=== PATIENT | male | born 1950 | race Caucasian/White ===

== ENCOUNTER 2019-01-27 09:43 | Emergency (ER) | payer OTHER, MEDICARE ==
[~2019-01-27] VITALS: Ht 182.9 cm; Wt 91.0 kg
[2019-01-27 10:31] LABS: URINE BILIRUBIN - DIPSTICK NEGATIVE (NEGATIVE); URINE BLOOD DIPSTICK TRACE-INTACT (NEGATIVE); URINE COLOR YELLOW; URINE GLUCOSE - DIPSTICK NEGATIVE (NEGATIVE); URINE KETONE NEGATIVE (NEGATIVE); URINE LEUK ESTERASE NEGATIVE (NEGATIVE); URINE NITRITE - DIPSTICK NEGATIVE (Negative); URINE PROTEIN - DIPSTICK NEGATIVE (NEG-TRACE); URINE UROBILINOGEN - DIPSTICK 0.2 E.U./dL (0.2)
[2019-01-27 11:11] LABS: IMMATURE GRANULOCYTES 0.5 % (0.0-5.0); MEAN CELL VOLUME 97.6 fL CALC (80.0-100.0); MEAN CORPUSCULAR HGB 32.5 pG CALC (26.0-32.0); MEAN CORPUSCULAR HGB CONC 33.3 g/L CALC (32.0-36.0); NEUT# 4.66 thou/uL (1.82-7.42); RED BLOOD COUNT 4.18 mill/uL (4.70-6.10)
[2019-01-27 11:26] LABS: HEMATOCRIT 40.8 % (39.0-50.0); HEMOGLOBIN 13.6 g/dl (14.0-18.0)
[2019-01-27 11:36] LABS: ALKALINE PHOSPHATASE 55 u/l (38-126); ANION GAP 12 (6-22 (CALC)); BILIRUBIN, TOTAL 0.6 mg/dL (0.0-1.4); BUN 11 mg/dL (8-23); BUN/CREATININE RATIO 11 (12-20 (CALC)); CARBON DIOXIDE 24 mmol/l (22-30); CHLORIDE 101 mmol/l (95-108); GFR > 60 ML/MIN (>=60 (CALC)); GFR FOR AFR.AMER. > 60 ML/MIN (>=60 (CALC)); POTASSIUM 3.8 mmol/l (3.5-5.1); SGOT/AST 34 u/l (19-48); SODIUM 134 mmol/l (137-146); TOTAL PROTEIN 7.4 g/dL (6.3-8.2)
[2019-01-27 12:59] VITALS: BP 134/70
== END 2019-01-27 12:59 | disposition home or self-care (01) | DRG 696 ==
LOC: ED 09:43
PROVIDERS: Emergency Medicine
PROC: 0T9B70Z Drainage of Bladder with Drainage Device, Via Natural or Artificial Opening (ICD-10-PCS; principal; 2019-01-27)
DX: R33.9 Retention of urine, unspecified (principal); I10 Essential (primary) hypertension; J44.9 Chronic obstructive pulmonary disease, unspecified; F17.210 Nicotine dependence, cigarettes, uncomplicated

== ENCOUNTER 2019-01-28 18:50 | Emergency (ER) | payer OTHER, MEDICARE ==
[~2019-01-28] VITALS: Ht 182.9 cm; Wt 95.0 kg
[2019-01-28 19:56] VITALS: BP 123/65
== END 2019-01-28 19:59 | disposition home or self-care (01) | DRG 730 ==
LOC: ED 18:50
PROC: 0T2BX0Z Change Drainage Device in Bladder, External Approach (ICD-10-PCS; principal; 2019-01-28)
DX: N48.89 Other specified disorders of penis (principal); I10 Essential (primary) hypertension; J44.9 Chronic obstructive pulmonary disease, unspecified; F17.210 Nicotine dependence, cigarettes, uncomplicated

== ENCOUNTER 2019-06-02 | Emergency (ER) | payer MEDICARE ==
[~2019-06-02] MED LIST: BUPROPION150 M3 PO; FINASTERIDE5 MG PO; LORATADINE10 M3 PO; NORVASC5 M1 PO; PROAIR HFA IN; SG ASA LOW81 M1 PO; SYMBICORT 80-4.5MCG PO; SYSTANE COMPLET0.6 % OU; TAMSULOSIN HCL0.4 MG PO
[2019-06-02 12:33] LABS: URINE BILIRUBIN - DIPSTICK NEGATIVE (NEGATIVE); URINE BLOOD DIPSTICK LARGE (NEGATIVE); URINE COLOR YELLOW; URINE GLUCOSE - DIPSTICK NEGATIVE (NEGATIVE); URINE KETONE NEGATIVE (NEGATIVE); URINE LEUK ESTERASE LARGE (NEGATIVE); URINE NITRITE - DIPSTICK NEGATIVE (Negative); URINE PROTEIN - DIPSTICK TRACE mg/dL (NEG-TRACE); URINE SPECIFIC GRAVITY 1.015; URINE UROBILINOGEN - DIPSTICK 0.2 E.U./dL (0.2)
[2019-06-02] MEDS ORDERED: SPIRIVA RE2.5 MCG/AC IN (12:34)
[2019-06-02] MEDS ORDERED: METOPROL TAR25 M1 PO (12:35)
[2019-06-02 12:47] LABS: URINE BACTERIA MANY hpf; URINE RBC TNTC RBC/hpf (0-5); URINE SQUAMOUS EPITHELIAL CELL FEW EPI/hpf (0-FEW); URINE WBC 20-50 WBC/hpf (0-5)
[2019-06-02] MEDS ORDERED: CIPROFLOXACN500 MG PO (12:51)
== END 2019-06-02 13:01 | disposition home or self-care (01) | DRG 699 ==
PROC: 0T2BX0Z Change Drainage Device in Bladder, External Approach (ICD-10-PCS; principal; 2019-06-02)
DX: T83.098A Other mechanical complication of other urinary catheter, initial encounter (principal); N39.0 Urinary tract infection, site not specified; R33.9 Retention of urine, unspecified; C34.90 Malignant neoplasm of unspecified part of unspecified bronchus or lung; I10 Essential (primary) hypertension; J44.9 Chronic obstructive pulmonary disease, unspecified; F17.200 Nicotine dependence, unspecified, uncomplicated; B96.20 Unspecified Escherichia coli [E. coli] as the cause of diseases classified elsewhere; Y84.6 Urinary catheterization as the cause of abnormal reaction of the patient, or of later complication, without mention of misadventure at the time of the procedure

== ENCOUNTER 2019-06-21 16:55 | Inpatient (IN) | payer OTHER, MEDICARE ==
[~2019-06-21] VITALS: Ht 180.3 cm; Wt 75.3 kg
[~2019-06-21 16:55] MED LIST changes: +CIPROFLOXACN500 MG PO; +METOPROL TAR25 M1 PO; +SPIRIVA RE2.5 MCG/AC IN
--- NOTE | 2019-06-21 16:55 | NUR ---
PT REMAINS WITH EMS TO AWAIT ROOM ASSIGNMENT.
--- NOTE | 2019-06-21 17:30 | NUR ---
PT HAS HISTORY OF LUNG CA DIAGNOSED ABOUT 6 WEEKS AGO (FOUND DURING PREOP CLEARNCE FOR PROSTATE SURGERY) PT IS AUDIBLEY COARSE AND SOB AT REST O2 AT 4L VIA NC (PLACED BY EMS) WOTH SATS 94-95% PT DENIES HOME O2 DEPENDENCE. STATES LAST RADIATION TREATMENT WAS TODAY
--- NOTE | 2019-06-21 17:35 | NUR ---
PT TO ROOM. RT AT BEDSIDE.
[2019-06-21 18:34] LABS: HEMATOCRIT 36.5 % (39.0-50.0); HEMOGLOBIN 11.8 g/dl (14.0-18.0); MEAN CORPUSCULAR HGB 29.4 pG CALC (26.0-32.0); MEAN CORPUSCULAR HGB CONC 32.3 g/L CALC (32.0-36.0); RED BLOOD COUNT 4.01 mill/uL (4.70-6.10); RED CELL DISTRI WIDTH 13.5 % (11.5-15.5)
--- NOTE | 2019-06-21 18:35 | NUR ---
PT HAS INDWELLING MARROQUIN (CHANGED ON MAY 30 PER PT, CURRENTLY WITH LEG BAG CHANGED TO LARGE VOLUME BAG FRO COMFORT SPOUSE AT BEDSIDE REMAINS SOB AND SATS MAINTAINED UPDATED REGARDING POC.
[2019-06-21 18:47] LABS: IMMATURE GRANULOCYTES 8.3 % (0.0-5.0); PLATELET COUNT 118 thou/uL (130-400)
--- NOTE | 2019-06-21 18:50 | NUR ---
PT AWARE OF PLANNED ADMISSION
[2019-06-21 19:05] LABS: ACT PARTIAL THROMBO TIME 27.1 SECONDS (20.0-32.5); PROTHROMBIN TIME 10.2 SECONDS (9.0-12.5)
[2019-06-21 19:15] LABS: BAND 29 % (0-8); MANUAL DIFFERENTIAL YES; PLASMA CELL 0
[2019-06-21 19:28] LABS: ALBUMIN 3.8 g/dL (3.2-5.0); ALKALINE PHOSPHATASE 79 u/l (38-126); BILIRUBIN, TOTAL 0.6 mg/dL (0.0-1.4); BUN 29 mg/dL (8-23); BUN/CREATININE RATIO 42 (12-20 (CALC)); CHLORIDE 101 mmol/l (95-108); CREATININE 0.7 mg/dL (0.7-1.3); GFR > 60 ML/MIN (>=60 (CALC)); GFR FOR AFR.AMER. > 60 ML/MIN (>=60 (CALC)); SGOT/AST 35 u/l (19-48); SODIUM 138 mmol/l (137-146); TOTAL PROTEIN 7.2 g/dL (6.3-8.2)
[2019-06-21 19:31] LABS: ANION GAP 13 (6-22 (CALC)); CARBON DIOXIDE 29 mmol/l (22-30); POTASSIUM 4.6 mmol/l (3.5-5.1)
--- NOTE | 2019-06-21 20:21 | NUR ---
PT HAS LOUD [id number] CONGESTION AT THIS TIME. 02 STA IS 97% ON 5 LITERS O2 VIA NASAL CANNULA.
[2019-06-21 21:47] VITALS: BP 138/103
--- NOTE | 2019-06-21 21:47 | NUR ---
PT ADMITTED, REPORT GIVEN TO EVA FERRELL. PT IN STABLE CONDITION TRANSPORTED TO ROOM 273 IN W/C ON 5L O2 VIA NASAL CANNULA AND INDWELLING MARROQUIN CATHETER.
--- NOTE | 2019-06-21 21:47 | NUR ---
PT TRANSPORTED VIA WHEELCHAIR ACCOMPAINED BY ER STAFF AND . PT ALERT AND ORIENTED. X1 ASSIST FROM WHEELCHAIR TO BED. AUDIBLE CONGESTION NOTED. O2 @5L/M VIA NC. PT APPEARS SOB. WEAK NONPRODUCTIVE COUGH. +2 EDEMA NOTED TO RIGHT ARM. SKIN INTACT. IV SITE APPEARS HEALTHY AND FLUSHES EASILY. EMERGENCY TECHNICIAN IN PLACE. PT ORIENTED TO ROOM AND CALL LIGHT SYSTEM. DISCUSSED POC. PT VERBALIZED UNDERSTANDING. CALL LIGHT WITHIN REACH. WILL CONTINUE TO MONITOR.
[2019-06-22] VITALS (7 sets, daily range): BP systolic 90–117; BP diastolic 57–77
--- NOTE | 2019-06-22 01:22 | NUR ---
PT SITTING UP AT BEDSIDE WITH HEAD AND ARMS ON BEDSIDE TABLE. O2 @ 5L/M VIA NC. NO APPARENT DISTRESS NOTED. PT DENIES ANY PAIN OR DISCOMFORT. CALL LIGHT WITHIN REACH. WILL CONTINUE TO MONITOR.
--- NOTE | 2019-06-22 07:45 | NUR ---
PATIENT A/OX3 WITH TIMES OF CONFUSION, PATIENT HAS SHORTNESS OF BREATHE WITH AMBULATION, PATIENT ON O2 VIA NC, PATIENT NO C/O PAIN NO CHEST PAIN, PATIENT IS ONE PERSON ASSIST FROM BED TO COMMODE, PATIENT LAST BOWEL MOVEMENT IS 06/15/19, WILL CONTINUE TO MONITOR PATIENT, CALL LIGHT WITHIN REACH
--- NOTE | 2019-06-22 12:15 | NUR ---
PATIENT ABLE TO MAKE NEEDS KNOWN, PATIENT IS SITTING UP IN BEDS, NO C/O PAIN, NO S/S RESP DISTRESS, PATIENT ON O2 VIA NC, PATIENT HEART RHYTHM IN NORMAL SINUS, WILL CONTINUE TO MONITOR PATIENT, CALL LIGHT WITHIN REACH
--- NOTE | 2019-06-22 16:30 | NUR ---
PATIENT ALERT WITH CONFUSION, NO S/S RESP DISTRESS, PATIENT ON O2 VIA NC, PATIENT NO S/S PAIN, PATIENT DIET CHANGE TO [facility] SOFT AND IV SITE CHANGE NOTIFIED PATIENT SPOUSE, PATIENT HEART RHYTHM NORMAL SINUS, PATIENT TOLERATED IV ANTIBOTICS, NOTIFIED DR. MADDOX PATIENT IS AN SEPSIS RISK PER SEPSIS SCREEN, NO NEW ORDERS, TEA COLOR URINE DRAINING INTO PATIENT MARROQUIN, WILL CONTINUE MONITOR PATIENT, CALL LIGHT WITHIN REACH
--- NOTE | 2019-06-22 19:56 | NUR ---
PT SITTING ON SIDE OF THE BED WITH HEAD DOWN, AROSE TO MY VOICE. PT ASSESSMENT COMPLETED AND MEDICATION ADMIINISTERED ORDERS PROVIDE FOR AT THIS TIME. PT DENIES ANY OTHER NEEDS AT THIS TIME. CALL LIGHT W/IN REACH.
--- NOTE | 2019-06-22 22:11 | NUR ---
pt medicated as orders provide. pt is still sitting on side of the bed with head down on table. provided additional blanket for back and shoulders, denies any other needs. i offered a pillow for his head, but denied. bed alarm attached to pt and call light at side. lights turned down per request, tv is still on and pt requested that door be left open.
--- NOTE | 2019-06-23 01:26 | NUR ---
PT APPEARS TO BE SLEEPING AT THIS TIME.
[2019-06-23 04:29] VITALS: BP 99/66
--- NOTE | 2019-06-23 05:00 | NUR ---
ENTERED ROOM TO FIND PT SITTING ON THE BED W/BST PUSHED AWAY AND PT HEAD OVER BETWEEN HIS KNEES. PT DENIED ANY NEEDS. I ASKED PT IF I COULD PUT TABLE UNDER HIS HEAD SO HE DID NOT FALL OF FLOOR, HE QUICKLY SAT STRAIGHT UP STATING "FINE." I OFFERED PILLOW OR SMALL BLANKET TO PLACE ON BST FOR COMFORT TO REST HIS ARMS AND HEAD ON (THAT'S HOW HE HAS BEEN SITTING MUCH OF THE NIGHT), HE REFUSED ANY OF THOSE COMFORT ITEMS. PT LEFT SITTING ON SIDE OF THE BED W/TABLE IN FRONT OF HIM FOR SUPPORT, PORTABLE ALARM ON.
--- NOTE | 2019-06-23 05:35 | NUR ---
pt medicated as orders provide. sitting on side of the bed. no s/o distress noted.
[2019-06-23 07:43] VITALS: BP 104/57
--- NOTE | 2019-06-23 08:20 | NUR ---
PATIENT ALERT WITH CONFUSION, PATIENT ABLE TO MAKE NEEDS KNOWN, PATIENT SITTIND UP IN BED, NO C/O PAIN, NO S/S RESP DISTRESS AT REST, PATIENT O2 VIA NC, PATIENT HEART RHYTHM IN NORMAL SINUS, LAST BOWEL MOVEMENT 06/21/19, WILL CONTINUE TO MONITOR PATIENT, CALL LIGHT6 WITHIN REACH
[2019-06-23 10:00] LABS: HEMATOCRIT 34.9 % (39.0-50.0); HEMOGLOBIN 11.2 g/dl (14.0-18.0); MEAN CELL VOLUME 91.4 fL CALC (80.0-100.0); MEAN CORPUSCULAR HGB 29.3 pG CALC (26.0-32.0); MEAN CORPUSCULAR HGB CONC 32.1 g/L CALC (32.0-36.0); RED BLOOD COUNT 3.82 mill/uL (4.70-6.10); RED CELL DISTRI WIDTH 13.7 % (11.5-15.5)
[2019-06-23 10:21] LABS: ALBUMIN 3.4 g/dL (3.2-5.0); ALKALINE PHOSPHATASE 76 u/l (38-126); ANION GAP 10 (6-22 (CALC)); BILIRUBIN, TOTAL 0.4 mg/dL (0.0-1.4); BUN 32 mg/dL (8-23); BUN/CREATININE RATIO 49 (12-20 (CALC)); CARBON DIOXIDE 32 mmol/l (22-30); CHLORIDE 101 mmol/l (95-108); CREATININE 0.7 mg/dL (0.7-1.3); GFR > 60 ML/MIN (>=60 (CALC)); GFR FOR AFR.AMER. > 60 ML/MIN (>=60 (CALC)); POTASSIUM 4.2 mmol/l (3.5-5.1); SGOT/AST 38 u/l (19-48); SODIUM 139 mmol/l (137-146); TOTAL PROTEIN 6.4 g/dL (6.3-8.2)
--- NOTE | 2019-06-23 12:00 | NUR ---
PATIENT A/OX2, NO S/S RESP DISTRESS, PATIENT ON O2 VIA NC, PATIENT NO C/O PAIN, PATIENT SITTING UP IN BED WITH ON BEDSIDE TABLE, PATIENT TEA COLOR YELLOW DRAINING IN MARROQUIN, PATIENT HEART RHYTHM IN NORMAL SINUS, WILL CONTINUE TO MONITOR PATIENT, CALL LIGHT WITHIN REACH
[2019-06-23 12:01] VITALS: BP 99/60
[2019-06-23] MEDS ORDERED: PREDNISONE10 MG PO (13:25)
[2019-06-23] MEDS ORDERED: LEVAQUIN750 MG PO (13:27)
[2019-06-23] MEDS ORDERED: ALBUTEROL SUL0.083 % IN (13:27)
[2019-06-23 15:32] VITALS: BP 98/56
--- NOTE | 2019-06-23 15:41 | NUR ---
PATIENT ABLE TO MAKE NEEDS KNOWN, NO C/O PAIN, PATIENT ON O2 VIA NC, PATIENT FAILED WALK TEST, PATIENT MAY NEED OXYGEN WHEN DISCHARGED, WILL CONTINUE TO MONITOR PATIENT, CALL LIGHT WITHIN REACH
--- NOTE | 2019-06-23 15:51 | NUR ---
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 MADDOX ABOUT SPOUSE (POA) REQUEST FOR NO HOME HEALTH, DR. MADDOX AND PATIENT ACCEPTED SPOUSE REQUEST
--- NOTE | 2019-06-23 16:18 | NUR ---
PATIENT ABLE TO MAKE NEEDS KNOW, PATIENT DISCHARGED TO HOME, EDUCATED PATIENT ON DISCHARED INSTRUCTIONS, PATIENT GIVEN HANDOUTS ON DISCHARGED INSTRUCTION, PATIENT IV REMOVED, PATIENT RECIEVED PORTABLE O2 TANK, ASSISTED PATIENT OFF FLOOR VIA WHEELCHAIR TO SPOUSE CAR
--- NOTE | 2019-07-01 13:26 | NUR ---
Pneumonia discharge call completed 06/30/19. Spoke to who states patient was placed in Hospice care on Monday night. Discharge medications were obtained and patient has been taking them. Hospice staff is available to family. No needs per but appreciative of offer and of call.
== END 2019-06-23 16:28 | disposition home or self-care (01) | DRG 193 ==
LOC: ED 16:55 → ED-I 20:09 → ED 20:12 → ED-I 20:13 → MS2 20:36
PROVIDERS: Emergency Medicine; Nurse Practitioner Family; ADMIT Internal Medicine; ATTEND Internal Medicine
DX: J18.9 Pneumonia, unspecified organism (principal); J96.21 Acute and chronic respiratory failure with hypoxia; J44.0 Chronic obstructive pulmonary disease with (acute) lower respiratory infection; C34.90 Malignant neoplasm of unspecified part of unspecified bronchus or lung; C79.9 Secondary malignant neoplasm of unspecified site; J44.1 Chronic obstructive pulmonary disease with (acute) exacerbation; I10 Essential (primary) hypertension; F17.210 Nicotine dependence, cigarettes, uncomplicated; R33.9 Retention of urine, unspecified; Z92.21 Personal history of antineoplastic chemotherapy
CPT/HCPCS: G0378; J1650